=== PATIENT | female | born 1995 ===

== ENCOUNTER 2017-04-29 12:33 | Emergency (ER) | payer OTHER ==
--- NOTE | 2017-04-29 16:27 | UC ---
Respiratory Complaint HPI - HPI Summary HPI Summary: Pt c/o cough, sob, chills, fever X 1 week. - History of Current Complaint Chief Complaint: UCGeneralIllness Stated Complaint: CONGESTION AND COUGH Time Seen by Provider: 04/29/17 16:21 Hx Obtained From: Patient Hx Last Menstrual Period: 04/15/17 ?: No Onset/Duration: Gradual Onset, Lasting Days - 7 Timing: Constant Severity Initially: Mild Severity Currently: Mild Pain Intensity: 0 Character: Cough: Nonproductive Aggravating Factors: Exertion, Deep Breaths, Recumbent Position Associated Signs And Symptoms: Positive: Fever, Chills - Risk Factors Pulmonary Embolism Risk Factors: Oral Contraceptives Cardiac Risk Factors: Negative Pseudomonas Risk Factors: Chronic Lung Disease - asthma Tuberculosis Risk Factors: Negative - Allergies/Home Medications Allergies/Adverse Reactions: Allergies Allergy/AdvReac Type Severity Reaction Status Date / Time No Known Allergies Allergy Verified 04/29/17 16:18 Home Medications: Home Medications Ortho Tri-Cylcen Low 1 tab DAILY 04/29/17 [History Confirmed 04/29/17] PMH/Surg Hx/FS Hx/Imm Hx Previously Healthy: Yes Respiratory History: Asthma - Surgical History Surgical History: None - Family History Known Family History: Positive: Cardiac Disease - Social History Occupation: Student Lives: Dormitory/Roommates Alcohol Use: Occasionally Substance Use Type: None Smoking Status (MU): Never Smoked Tobacco Have You Smoked in the Last Year: No - Immunization History Vaccination Up to Date: Yes Review of Systems Constitutional: Fever, Chills, Fatigue Skin: Negative Eyes: Negative ENT: Negative Respiratory: Shortness Of Breath, Cough Cardiovascular: Negative Gastrointestinal: Negative Genitourinary: Negative Motor: Negative Neurovascular: Negative Musculoskeletal: Negative Neurological: Negative Psychological: Negative Is Patient Immunocompromised?: No All Other Systems Reviewed And Are Negative: Yes Physical Exam Triage Information Reviewed: Yes Appearance: Well-Appearing Vital Signs: Initial Vital Signs Temp 98.7 F 04/29/17 16:14 Pulse 67 04/29/17 16:14 Resp 16 04/29/17 16:14 BP 135/71 04/29/17 16:14 Pulse Ox 98 04/29/17 16:14 Vital Signs Reviewed: Yes Eye Exam: Normal ENT Exam: Normal Dental Exam: Normal Neck exam: Normal Respiratory Exam: Other Respiratory: Positive: Wheezing Cardiovascular Exam: Normal Musculoskeletal Exam: Normal Neurological Exam: Normal Psychological Exam: Normal Skin Exam: Normal Diagnostic Evaluation - Laboratory O2 Sat by Pulse Oximetry: 98 Respiratory Course/Dx - Differential Dx/Diagnosis Differential Diagnosis/HQI/PQRI: Asthma, Bronchitis, Influenza Provider Diagnoses: Bronchitis Discharge - Discharge Plan Condition: Stable Disposition: HOME Prescriptions: Azithromycin TAB* [Zithromax TAB (Z-TATE) 250 mg #6 tabs] 2 tab PO .TODAY, THEN 1 DAILY #1 tate Benzonatate CAP* [Tessalon 100 MG CAP*] 100 mg PO Q8H PRN #30 cap PRN Reason: Cough predniSONE TAB* [Deltasone TAB*] 30 mg PO DAILY #12 tab Patient Education Materials: Acute Bronchitis (ED) Referrals: [facility] [Outside] Non Staff,Doctor [Primary Care Provider] - Additional Instructions: Please follow up with your PCP or return to clinic as needed.
== END 2017-04-29 16:33 | disposition home or self-care (01) ==
LOC: UCCORT 12:33
DX: J40 Bronchitis, not specified as acute or chronic (principal); Z72.89 Other problems related to lifestyle
CPT/HCPCS: 99202; G0463

== ENCOUNTER 2019-06-05 17:07 | Emergency (ER) | payer OTHER ==
[2019-06-05 18:02] VITALS: BP 119/76
[2019-06-05 19:54] LABS: Influenza A Molecular Negative (Negative); Influenza B Molecular Negative (Negative)
--- NOTE | 2019-06-05 20:04 | UC ---
FLU HPI - HPI Summary HPI Summary: 23-year-old female presents with 2 day history of nasal congestion, chest congestion, and occasionally productive cough. Denies fever, chills, ear pain, sore throat, chest pain, abdominal pain, nausea, vomiting. - History of Current Complaint Chief Complaint: UCRespiratory Stated Complaint: COUGH, CONGESTION Time Seen by Provider: 06/05/19 19:48 Hx Obtained From: Patient Hx Last Menstrual Period: 06/02/2019 Pain Intensity: 0 - Allergy/Home Medications Allergies/Adverse Reactions: Allergies Allergy/AdvReac Type Severity Reaction Status Date / Time No Known Allergies Allergy Verified 06/05/19 17:55 Home Medications: Home Medications Albuterol HFA INHALER* [Ventolin HFA Inhaler*] 2 puff INH Q4H PRN #1 mdi [Rx] Benzonatate CAP* [Tessalon 100 MG CAP*] 100 mg PO TID PRN #21 cap 06/05/19 [Rx] Dm/Acetaminophen/Doxylamine [Vicks Nyquil Cold & Flu N] 30 ml PO Q6H PRN [History Confirmed 06/05/19] Guaifenesin/Dextromethorphan [Mucinex Dm Maximum Streng 60-1200 mg] 1 tab PO Q12H PRN 06/05/19 [History Confirmed 06/05/19] PMH/Surg Hx/FS Hx/Imm Hx Previously Healthy: Yes - Denies significant PMH - Surgical History Surgical History: None - Family History Known Family History: Positive: Cardiac Disease - Social History Occupation: Student Lives: Dormitory/Roommates Alcohol Use: Occasionally Substance Use Type: None Smoking Status (MU): Never Smoked Tobacco Have You Smoked in the Last Year: No - Immunization History Vaccination Up to Date: Yes Review of Systems All Other Systems Reviewed And Are Negative: Yes Constitutional: Negative: Fever, Chills Skin: Negative: Rash Eyes: Negative: Drainage, Eye Redness ENT: Positive: Nasal Discharge, Sinus Congestion. Negative: Sore Throat, Ear Ache, Sinus Pain/Tenderness Respiratory: Positive: Cough. Negative: Shortness Of Breath Cardiovascular: Negative: Chest Pain Gastrointestinal: Negative: Abdominal Pain, Vomiting, Nausea Genitourinary: Positive: Negative Musculoskeletal: Positive: Negative Neurological/Mental Status: Positive: Negative Is Patient Immunocompromised?: No Physical Exam - Summary Physical Exam Summary: GENERAL APPEARANCE: Well developed, well nourished, alert and cooperative, and appears to be in no acute distress. EYES: Conjunctiva clear. No drainage. EARS: External auditory canals and tympanic membranes clear, hearing grossly intact. NOSE: Moderate nasal congestion. No nasal discharge. THROAT: Pharynx normal. No tonsilar inflammation, swelling, exudate, or lesions. Uvula midline. NECK: Neck supple, non-tender without lymphadenopathy. CARDIAC: Normal S1 and S2. No S3, S4 or murmurs. Rhythm is regular. There is no peripheral edema, cyanosis or pallor. Extremities are warm and well perfused. Capillary refill is less than 2 seconds. Peripheral pulses intact. LUNGS: Mild bilateral expiratory wheezes. Bronchospastic cough. ABDOMEN: Positive bowel sounds. Soft, nondistended, nontender. No guarding or rebound. No masses or hepatosplenomegally. MUSKULOSKELETAL: ROM intact to all extremities. No joint erythema or tenderness. Normal muscular development. Normal gait. SKIN: Skin normal color, texture and turgor with no lesions or eruptions. Triage Information Reviewed: Yes Vital Signs: Initial Vital Signs Temp 99.5 F 06/05/19 17:54 Pulse 78 06/05/19 17:54 Resp 16 06/05/19 17:54 BP 119/76 06/05/19 17:54 Pulse Ox 99 06/05/19 17:54 Vital Signs Reviewed: Yes Flu Course/Dx - Course Course Of Treatment: 23-year-old female presents with 2 day history of nasal congestion, chest congestion, and occasionally productive cough. Denies fever, chills, ear pain, sore throat, chest pain, abdominal pain, nausea, vomiting. Afebrile. Vital signs stable. Patient had moderate nasal congestion, normal TMs, normal pharynx , no cervical lymphadenopathy, mild bilateral exudate or wheezes, bronchospastic cough, and otherwise unremarkable exam. Rapid flu test was negative reviewed results of the patient. Recommending symptomatic treatment for a viral URI with reactive airway disease including albuterol inhaler 2 puffs every 4-6 hours as needed for shortness of breath, wheezing, coughing fits as well as Tessalon Perles 1 capsule every 8 hours as needed for cough. She is to return here or follow-up with her primary care provider in 5-7 days if symptoms not improving. Anticipatory guidance and warning symptoms reviewed with the patient. Verbalizes understanding and agrees with plan of care. - Differential Dx/Diagnosis Differential Diagnosis/HQI/PQRI: Bronchitis, Influenza, Pneumonia, Upper Respiratory Infection Provider Diagnosis: Upper respiratory infection with cough and congestion, Reactive airway disease Discharge ED - Sign-Out/Discharge Documenting (check all that apply): Patient Departure All imaging exams completed and their final reports reviewed: No Studies - Discharge Plan Condition: Stable Disposition: HOME Prescriptions: Albuterol HFA INHALER* [Ventolin HFA Inhaler*] 2 puff INH Q4H PRN #1 mdi PRN Reason: Sob/Wheezing Benzonatate CAP* [Tessalon 100 MG CAP*] 100 mg PO TID PRN #21 cap PRN Reason: Cough Patient Education Materials: Upper Respiratory Infection (ED), Wheezing (ED) Referrals: No Primary Care Phys,NOPCP [Primary Care Provider] - Additional Instructions: The rapid flu test was performed in the clinic today was negative. Your history and exam are consistent with a viral upper respiratory infection with reactive airway disease (wheezing). Viral infections do not respond to antibiotics and are limited to the treatment of symptoms. Viral infections typically run their course in 7-10 days. Drink plenty of fluids to avoid dehydration especially if you are running any fever. Use a saline rinse kit such as Neti Pot or NeilMed at least twice a day to help thin secretions and promote drainage of the sinuses. Use fluticasone (Flonase) nasal spray 2 sprays each nostril once daily. Using gsvz-hly-oxzewwg decongestant such as Sudafed according to directions to help with the nasal congestion. Use the albuterol inhaler 2 puffs every 4-6 hours as needed for any shortness of breath, wheezing, or coughing fits. Use Tessalon Perles 1 capsule every 8 hours as needed for cough. Take over the counter acetaminophen (Tylenol) or ibuprofen (Advil, Motrin) according to directions as needed for pain or fever. Return here or follow up with your primary care provider in 5-7 days if symptoms persist. Seek immediate medical attention in the emergency room if you have fever greater than 100.5 F despite taking acetaminophen or ibuprofen, have chest pain , difficulty breathing, are unable to swallow, or have any worsening of symptoms. - Billing Disposition and Condition Condition: STABLE Disposition: Home - Attestation Statements Provider Attestation: This patient was not seen by me . I was available for consult Chart reviewed/ ANJELICA
== END 2019-06-05 20:36 | disposition home or self-care (01) ==
LOC: UCCORT 17:07
DX: J45.909 Unspecified asthma, uncomplicated (principal); J06.9 Acute upper respiratory infection, unspecified; R09.89 Other specified symptoms and signs involving the circulatory and respiratory systems; R05 Cough
CPT/HCPCS: 99212; G0463